=== PATIENT | male | born 1980 ===

== ENCOUNTER 2017-10-20 19:49 | Emergency (ER) | payer OTHER ==
--- NOTE | 2017-10-20 19:59 | ED.ADGEN ---
Adult General Chief Complaint Chief Complaint ".. I was folding up a chair... and cut off the end of my Rt index finger..." HPI HPI Patient is a 37 year old male [place] [facility] inmate who presents with above hx and complaints of almost complete avulsion laceration tip of Rt index finger. The distal tissue is connected to finger by a very thin strip of skin. The tissue is avascular. Patient has exposed bone. There is complete loss of nail and nail bed. Patient states some of the tissue was still stuck in the chair. Patient is up-to-date with tetanus and vaccinations upon incarceration last month. Patient is right-hand dominant. Patient denies any immunosuppression. Patient denies any specific ill contacts. Review of Systems Review of Systems Constitutional: Denies fever or chills [] Eyes: Denies change in visual acuity, redness, or eye pain [] HENT: Denies nasal congestion or sore throat [] Respiratory: Denies cough or shortness of breath [] Cardiovascular: No additional information not addressed in HPI [] GI: Denies abdominal pain, nausea, vomiting, bloody stools or diarrhea [] : Denies dysuria or hematuria [] Musculoskeletal: Denies back pain or joint pain []complaints of Avulsion of right index finger Integument: Denies rash or skin lesions [] Neurologic: Denies headache, focal weakness or sensory changes [] Endocrine: Denies polyuria or polydipsia [] All other systems were reviewed and found to be within normal limits, except as documented in this note. Family History Family History Noncontributory Current Medications Current Medications Current Medications Medications (Trade) Dose Ordered Sig/Aniket Start Time Stop Time Status Last Admin Dose Admin Aspirin (Angela Aspirin) 325 mg 1X ONCE 10/20/17 21:30 10/20/17 21:31 DC 10/20/17 21:18 325 MG Bupivacaine HCl (Sensorcaine Mpf 0.5%) 30 ml 1X ONCE 10/20/17 20:00 10/20/17 20:25 DC Bupivacaine HCl (Sensorcaine Pf 0.75%) 10 ml STK-MED ONCE 10/20/17 20:13 10/20/17 20:14 DC Ceftriaxone Sodium (Rocephin Im) 1 gm 1X ONCE 10/20/17 20:30 10/20/17 20:31 DC 10/20/17 20:30 1 GM Lidocaine HCl 20 ml 1X ONCE 10/20/17 20:30 10/20/17 20:31 DC See nursing for home meds Allergies Allergies Allergies Coded Allergies Type Severity Reaction Last Updated Verified No Known Drug Allergies 10/20/17 No Physical Exam Physical Exam Constitutional: Well developed, well nourished, in acute distress, non-toxic appearance. [] HENT: Normocephalic, atraumatic, bilateral external ears normal, oropharynx moist, no oral exudates, nose normal. [] Eyes: PERRLA, EOMI, conjunctiva normal, no discharge. [] Neck: Normal range of motion, no tenderness, supple, no stridor. [] Cardiovascular: Tachycardia Heart rate regular rhythm, no murmur [] Lungs & Thorax: Bilateral breath sounds equal at apexes with scattered wheezing on auscultation [] Abdomen: Bowel sounds normal, soft, no tenderness, no masses, no pulsatile masses. [] Skin: Warm, dry, no erythema, no rash. [] Back: No tenderness, no CVA tenderness. [] Extremities: No tenderness, no cyanosis, no clubbing, ROM intact, no edema. Except findings in right index finger Neurologic: Alert and oriented X 3, normal motor function, normal sensory function, no focal deficits noted. [] Psychologic: Affect normal, judgement normal, mood normal. [] Current Patient Data Vital Signs Vital Signs Date Time Temp Pulse Resp B/P (MAP) Pulse Ox O2 Delivery O2 Flow Rate FiO2 10/20/17 20:24 98.0 88 20 96 Room Air EKG EKG [] Radiology/Procedures Radiology/Procedures My interpretation of x-ray of right hand shows tuff fracture[] Course & Med Decision Making Course & Med Decision Making Pertinent Labs and Imaging studies reviewed. (See chart for details) Procedure note- laceration repair- patient received a digital block as well as some local injections of Sensorcaine and lidocaine to right index finger. Edges of wound cleaned with Betadine. Wound irrigated extensively with normal saline in range of motion. Residual avulsion tissue positioned over exposed bone and sutured with 4-0 Prolene. One mattress suture and 12 simple to re- connect the avulsed tissue. Polysporin and a nonstick Telfa dressing placed over finger tip. Bulk dressing with 4 x 4 and wrap. Index finger ta taped to the third finger. Patient must keep wound clean and dry. If dressing becomes soiled or wet must be removed immediately. Once dressing is removed to apply Polysporin 4 times a day. Sutures removed in 10 days. Wound has a high probability of infection and loss of avulsed tissue. May require surgical reduction and tissue flap over the distal finger. Even if avulsed tissue remains viable, may still need plastic surgery if scar formation makes finger dysfunctional. Patient take Keflex 500 mg 3 times a day for 7 days. Patient take a daily aspirin. Return if any concerns. [] Final Impression Final Impression 1. Distal index finger avulsion/amputation right hand[] Problems: Dragon Disclaimer Dragon Disclaimer This electronic medical record was generated, in whole or in part, using a voice recognition dictation system. SHUN ARREOLA MD Oct 20, 2017 19:59
[2017-10-20] MEDS ORDERED: BUPIVACAINE MPF 0.5% 30 ML VIAL. SQ ONE (20:00)
[2017-10-20] MEDS ORDERED: BUPIVACAINE PF 0.75% 10 ML VIAL ONE (20:13)
[2017-10-20 20:24] VITALS: BP 154/93
[2017-10-20] MEDS ORDERED: LIDOCAINE 2% 20 ML VIAL. IJ ONE (20:30)
[2017-10-20] MEDS ORDERED: cefTRIAXone IM 1 GM VIAL IM ONE (20:30)
[2017-10-20] MEDS ORDERED: ASPI81TA50 PO (21:03)
[2017-10-20] MEDS ORDERED: BACI28.34 TP (21:03)
[2017-10-20] MEDS ORDERED: CEPH-264 PO (21:03)
[2017-10-20] MEDS ORDERED: ASPIRIN 325 MG TABLET PO ONE (21:30)
--- NOTE | 2017-10-21 07:23 | RAD ---
Indication: Trauma to the second digit Technique: 3 views of the right hand Comparison: None Findings: Crush fracture of the tuft of the second finger noted with no extension to the articular surface. Overlying soft tissue injury with swelling noted. Chronic fracture of the ulnar styloid process noted. No arthritic process. No radiopaque foreign body. Impression: Crush fracture of the tip of the second digit.
== END 2017-10-20 21:21 | disposition home or self-care (01) ==
LOC: ER 19:49
DX: S61.310A Laceration without foreign body of right index finger with damage to nail, initial encounter (principal); W45.8XXA Other foreign body or object entering through skin, initial encounter; Y93.89 Activity, other specified; Y99.8 Other external cause status; Y92.89 Other specified places as the place of occurrence of the external cause
CPT/HCPCS: 12041; 73130; 96372; 99284; J0696